=== PATIENT | male | born 1980 | race Caucasian/White ===

== ENCOUNTER 2017-02-12 15:49 | Emergency (ER) | payer OTHER ==
[2017-02-12 15:53] VITALS: BP 137/74; PULSE 100; RESP 20; TEMP 98.3
--- NOTE | 2017-02-12 16:54 | ED ---
ENT HPI - General Chief complaint: ENT Stated complaint: sore throat Time Seen by Provider: 02/12/17 15:56 Source: patient, RN notes reviewed, old records reviewed Mode of arrival: ambulatory Limitations: no limitations - History of Present Illness Initial comments: Is a pleasant 36-year-old male with chief complaint of 1 day of sore throat. Patient reports that his roommate was treated for strep throat and placed on antibiotics. Patient's return immediately he may have strep. Patient denies any fever chills difficulty swallowing chest pain or shortness of breath. Patient denies any nausea or abdominal pain. Patient states her seatbelt childhood vaccinations. Denies any other sick contacts signs remained. Patient receives been eating and drinking normally today. - Related Data Home Medications Medication Instructions Recorded Confirmed No Known Home Medications [No 02/12/17 02/12/17 Known Home Medications] Allergies Allergy/AdvReac Type Severity Reaction Status Date / Time phenobarbital Allergy throat Verified 02/12/17 15:53 swelling Review of Systems ROS Statement: Those systems with pertinent positive or pertinent negative responses have been documented in the HPI. ROS Other: All systems not noted in ROS Statement are negative. Past Medical History Past Medical History: No Reported History History of Any Multi-Drug Resistant Organisms: None Reported Past Surgical History: Orthopedic Surgery Past Psychological History: No Psychological Hx Reported Smoking Status: Current every day smoker Past Alcohol Use History: None Reported Past Drug Use History: None Reported General Exam - General Exam Comments Initial Comments: Well-appearing 36-year-old male. No distress. Limitations: no limitations General appearance: alert, in no apparent distress Head exam: Present: atraumatic, normocephalic, normal inspection Eye exam: Present: normal appearance, PERRL, EOMI. Absent: scleral icterus, conjunctival injection, periorbital swelling ENT exam: Present: normal exam, mucous membranes moist Neck exam: Present: normal inspection. Absent: tenderness, meningismus, lymphadenopathy Respiratory exam: Present: normal lung sounds bilaterally. Absent: respiratory distress, wheezes, rales, rhonchi, stridor Cardiovascular Exam: Present: regular rate, normal rhythm, normal heart sounds. Absent: systolic murmur, diastolic murmur, rubs, gallop, clicks GI/Abdominal exam: Present: soft, normal bowel sounds. Absent: distended, tenderness, guarding, rebound, rigid Extremities exam: Present: normal inspection, full ROM, normal capillary refill. Absent: tenderness, pedal edema, joint swelling, calf tenderness Back exam: Present: normal inspection Neurological exam: Present: alert, oriented X3, CN II-XII intact Psychiatric exam: Present: normal affect, normal mood Skin exam: Present: warm, dry, intact, normal color. Absent: rash Course Vital Signs 02/12/17 15:51 Temperature 98.3 F Pulse Rate 100 Respiratory 20 Rate Blood Pressure 137/74 O2 Sat by Pulse 98 Oximetry Medical Decision Making - Medical Decision Making This is a 36-year-old male with chief complaint of sore throat for the past one day. Patient has no fever at this time. Patient has a normal oropharynx. No evidence of exudates or swelling. Patient rapid strep obtained. Rapid strep is negative. Patient will be discharged at this time diagnosis of pharyngitis discuss cough drops Motrin and Tylenol for pain as well as other source for remedies. Patient agrees treatment plan will comply. Return parameters were discussed. - Lab Data Lab Results 02/12/17 Range/Units 16:00 Group A Strep Rapid Negative (Negative) Disposition Clinical Impression: Pharyngitis Disposition: HOME SELF-CARE Instructions: Pharyngitis (ED) Additional Instructions: Tylenol or Motrin for pain and fever. Cough drops. follow up with pcp Referrals: Francis Bush MD [Primary Care Provider] - 1-2 days Time of Disposition: 16:54
== END 2017-02-12 16:45 | disposition home or self-care (01) ==
LOC: EC 15:49
DX: J02.9 Acute pharyngitis, unspecified (principal); F17.200 Nicotine dependence, unspecified, uncomplicated; Z88.8 Allergy status to other drugs, medicaments and biological substances
CPT/HCPCS: 87081; 87430; 99283